=== PATIENT | male | born 1965 | race Asian ===

== ENCOUNTER → 2024-05-02 | Day surgery (SDC) | payer OTHER ==
[~2024-05-02] MED LIST: CELEBREX100 MG PO; COLESTIPOL HCL1 GM PO; FENTANYL CITRATE/PF 100MCG/2 ML INJ ONE; FLOMAX0.4 MG PO; GABAPENTIN400 MG PO; GLUCAGON FOR INJ 1 MG VIAL ONE; HYOSCYAMINE SULFATE 0.5 MG/ML INJ ONE; LIDOCAINE HCL 2% LOCAL INJ 5 ML SDV VIAL INJ ONE; LIPITOR10 MG PO; METFORMIN HCL500 M1 PO; METOCLOPRAMIDE HCL 10 MG/2ML VIAL ONE; PROPOFOL IV EMULSION 10 MG/ML 20 ML VIAL ONE
[2024-05-02] MEDS: LACTATED RINGER'S 1,000 ML ONE (13:09)
[2024-05-02 15:15] VITALS: TEMP 97.7
[2024-05-02 15:35] VITALS: BP 104/81; PULSE 59; RESP 18; O2SAT 99
[2024-05-02 16:03] LABS: WBC,FECAL (FECAL LACTOFERRIN) NEGATIVE (NEGATIVE)
[2024-05-03 13:51] LABS: C-REACTIVE PROTEIN <1 mg/L (0-10)
[2024-05-06 14:09] LABS: ENDOMYSIAL ANTIBODIES, IGA Negative (Negative)
[2024-05-06 14:54] LABS: IMMUNOGLOBULIN A 195 mg/dL (90-386); TISSUE TRANSGLUTAMINASE IGA AB <2 U/mL (0-3)
== END | disposition home or self-care (01) ==
LOC: OR 12:23
PROVIDERS: ATTEND Internal Medicine Gastroenterology
DX: K20.90 Esophagitis, unspecified without bleeding (principal); D12.2 Benign neoplasm of ascending colon; D12.4 Benign neoplasm of descending colon; K29.50 Unspecified chronic gastritis without bleeding; B96.81 Helicobacter pylori [H. pylori] as the cause of diseases classified elsewhere; K52.9 Noninfective gastroenteritis and colitis, unspecified; K31.A11 Gastric intestinal metaplasia without dysplasia, involving the antrum; K59.00 Constipation, unspecified; K64.8 Other hemorrhoids; Z71.3 Dietary counseling and surveillance; E11.9 Type 2 diabetes mellitus without complications; E78.00 Pure hypercholesterolemia, unspecified; Z79.84 Long term (current) use of oral hypoglycemic drugs; Z79.899 Other long term (current) drug therapy; Z68.26 Body mass index [BMI] 26.0-26.9, adult
CPT/HCPCS: 43239; 45380; 45385; 82784; 83516; 83630; 83993; 86140; 86256; 87045; 87177; 87324; 87328; 87449; 93005; J1610; J1980; J2001; J2470; J2704; J2765; J3010; J7121